=== PATIENT | female | born 1985 | race Caucasian/White ===

== ENCOUNTER → 2023-03-21 | Outpatient (CLI) | payer MEDICAID, OTHER ==
--- NOTE | 2023-03-21 15:37 | Diagnostic Imaging Report ---
INDICATION: Supervision normal TECHNIQUE: Multiple real-time grayscale images were obtained over the gravid uterus. COMPARISON: None FINDINGS: Single viable intrauterine currently in a cephalic presentation. Amount of amniotic fluid is normal, index 14.42 cm. Placenta posterior and without evidence for previa. Visualized anatomical structures including the kidneys, bladder, stomach, intracranial structures, four-chamber heart, three-vessel cord and insertion site, spine and extremities appearing unremarkable. Cervical length 4.5 cm. Biometrical measurements are as follows: Biparietal 4.93 cm, age 21 weeks 0 days. Head circumference 18.88 cm, age 21 weeks 2 days. Abdominal circumference 16.12 cm, age 21 weeks 2 days. Femur length 3.58 cm, age 21 weeks 3 days. Sonographic estimate age: 21 weeks 2 days. Sonographic estimated date of delivery: 07/30/2023. Estimated Weight: 410 gm (+/- 60 gm). LMP percentile: 91%. heart rate: 146 beats per minute. number: 1 of 1. IMPRESSION: 1. Single viable intrauterine , currently in a cephalic presentation. 2. Sonographic estimated age 21 weeks 2 days, with an estimated date of delivery 07/30/2023. 3. No sonographic abnormalities demonstrated at this time. Dictated by: Dictated on workstation # [id number]
== END ==
LOC: RAD 10:11
PROVIDERS: ATTEND Obstetrics & Gynecology
DX: Z36.89 Encounter for other specified antenatal screening (principal); Z3A.21 21 weeks gestation of pregnancy
CPT/HCPCS: 76805

== ENCOUNTER → 2023-05-08 | Outpatient (CLI) | payer MEDICAID ==
--- NOTE | 2023-05-08 17:06 | Diagnostic Imaging Report ---
INDICATION: Gestational diabetes, follow-up. TECHNIQUE: Multiple real-time grayscale images were obtained over the gravid uterus. COMPARISON: 03/21/2023 FINDINGS: A single live intrauterine fetus is seen measuring 28 weeks 1 day by composite measurements. The fetus is in cephalic presentation. Amniotic fluid index is normal at 12.2 cm. The placenta is posterior with no evidence of previa. heart rate is 143 bpm. The fetus has shown normal interval growth compared to the previous study. Full survey was not performed at this time. Biometrical measurements are as follows: Biparietal 6.93 cm, age 20 weeks 0 days. Head circumference 26.16 cm, age 28 weeks 4 days. Abdominal circumference 23.16 cm, age 27 weeks 4 days. Femur length 5.27 cm, age 28 weeks 0 days. Sonographic estimate age: 28 weeks 1 days. Sonographic estimated date of delivery: 07/30/2023. Estimated Weight: 1129 gm (+/- 165 gm). LMP percentile: 65%. heart rate: 143 beats per minute. number: 1 of 1. IMPRESSION: Single live intrauterine fetus measuring 28 weeks 1 day by composite measurements with normal interval growth compared to the previous study. Dictated by: Dictated on workstation # [id number]
== END ==
LOC: RAD 10:15
PROVIDERS: ATTEND Obstetrics & Gynecology
DX: O24.419 Gestational diabetes mellitus in pregnancy, unspecified control (principal); Z3A.28 28 weeks gestation of pregnancy
CPT/HCPCS: 76805